=== PATIENT | female | born 1960 | race Asian ===

== ENCOUNTER 2025-06-10 14:15 | Emergency (ER) | payer MEDICARE ==
[~2025-06-10] VITALS: Ht 157.5 cm; Wt 50.0 kg
[2025-06-10 14:16] VITALS: BP 120/63; PULSE 68; RESP 16; TEMP 36.4; O2SAT 99
[2025-06-10 15:30] LABS: BASOPHILS % 0.9 % (0.0-2.0); EOSINOPHILS % 0.6 % (0.0-5.0); HEMATOCRIT. 35.8 % (36.0-48.0); HEMOGLOBIN. 11.8 g/dL (12.0-16.0); LYMPHOCYTES % 19.5 % (20.0-50.0); MEAN PLATELET VOLUME 7.9 fl (7.4-10.4); MONOCYTES % 5.2 % (2.0-8.0); NEUTROPHILS % 73.8 % (40.0-76.0); PLATELET 212 x1000/uL (130-400); RED BLOOD CELL COUNT 3.89 mill/uL (4.2-5.4); RED CELL DISTRIBUTION WIDTH 13.0 % (11.6-14.6)
[2025-06-10 15:51] LABS: CREATININE 0.8 mg/dL (0.6-1.0); UREA NITROGEN BLOOD 12 mg/dL (9-23)
[2025-06-10 15:52] LABS: TROPONIN I HIGH SENSITIVITY 14 ng/L (3.0-34)
[2025-06-10 15:53] LABS: ASPARTATE AMINOTRANSFERASE 39 IU/L (<34); BILIRUBIN DIRECT 0.1 mg/dL (<=3.0); BILIRUBIN TOTAL 0.5 mg/dL (0.1-1.0); PROTEIN TOTAL 6.7 g/dL (6.0-8.3)
== END 2025-06-10 17:21 | disposition home or self-care (01) ==
LOC: ER 14:15
DX: R55 Syncope and collapse (principal); R42 Dizziness and giddiness
CPT/HCPCS: 36415; 80048; 80076; 84484; 85025; 93005; 99284